=== PATIENT | female | born 1995 | race Caucasian/White ===

== ENCOUNTER 2019-01-01 18:01 | Emergency (ER) | payer SELFPAY ==
[~2019-01-01] VITALS: Ht 170.2 cm; Wt 132.0 kg
--- OUTSIDE RECORDS SUMMARY | 2019-01-01 18:05 | XMS REPORT ---
Author DESTINY Lara Organization eClinical[employer] Address Unknown Phone Unavailable Care Team Providers Care Kersey Department Supervisor Name Role Phone DESTINY MILLER CP Unavailable Allergies, Adverse Reactions, Alerts Substance Reaction Event Type N.K.D.A. Info Not Available Non Drug Allergy Problems Problem Type Condition Code Onset Dates Condition Status Assessment Acute non-recurrent maxillary sinusitis J01.00 Active Assessment Bronchitis J40 Active Problem DTAP TEST V06.1 Active Medications Medication Code System Code Instructions Start Date End Date Status Dosage PredniSONE [facility] [address]-74 20 mg Orally Once a day Jul 14, 2016 Jul 24, 2016 1 tablet tid x 3 bid x 3 and daily x 3 Albuterol Sulfate HFA [facility] [address]-42 108 (90 Base) MCG/ACT Inhalation every 4 hrs Jul 14, 2016 2 puffs as needed Azithromycin [facility] [address]-14 250 MG Orally Once a day Jul 14, 2016 Jul 19, 2016 2 tablets on the first day, then 1 tablet daily for 4 days Procedures Procedure Coding System Code Date Office Visit, Est Pt., Level 3 CPT-4 36496 Jul 14, 2016 Vital Signs Date/Time: Jul 14, 2016 Cardiac Monitoring Heart Rate 76 bpm Weight 268.6 lbs Height 66.5 in Ht Percentile 80.59 % BMI 42.70 Index Blood Pressure Diastolic 92 mmHg Blood Pressure Systolic 134 mmHg BMIPercentile 98.69 % Wt Percentile 99.61 % Results No Known Results Summary Purpose eClinicalWorks Submission
--- OUTSIDE RECORDS SUMMARY | 2019-01-01 18:05 | XMS REPORT ---
Author Author JACOBO ORTIZ [facility] Address [address] [place] [address] Care Team Providers Care Traditional Chinese Herbalist Name Role Phone JACOBO ORTIZ Unavailable PROBLEMS No Known Problems ALLERGIES No Known Allergies ENCOUNTERS Encounter Location Date Diagnosis [facility] [address] [address] Sep, [facility] [address] [place] [phone] Aug, BMI 40.0-44.9, adult Z68.41 and Bronchitis J[facility] [address] [place] [address] Jul, Bronchitis J40 and BMI 40.0-44.9, adult Z68.[address] [facility] [address] [place] [phone] Jun, Wheezing R06.2 and Acute bronchitis J20.9 [facility] [address] [place] [phone] Oct, Acute non-recurrent frontal sinusitis J01.[address] [facility] [address] [phone] Aug, Bronchitis J40 [facility] [address] [place] [phone] Jun, [facility] [address] [phone] Jun, Acute non-recurrent maxillary sinusitis J01.00 and Bronchitis J40 [facility] [address] [address] Aug, [facility] [address] [facility] [id number] [place] [address] Aug, IMMUNIZATIONS No Known Immunizations SOCIAL HISTORY Never Assessed REASON FOR VISIT cough/congestion, nausea and issues being able to hear out of right ear for about a week.--SHARRI Gaytan PLAN OF CARE Activity Details Follow Up as needed or reg fu with pcp Reason: VITAL SIGNS Height 66.5 in 2018-09-08 Weight 281.2 lbs 2018-09-08 Temperature 97.8 degrees Fahrenheit 2018-09-08 Heart Rate 84 bpm 2018-09-08 Respiratory Rate 20 2018-09-08 BMI 44.70 kg/m2 2018-09-08 Blood pressure systolic 124 mmHg 2018-09-08 Blood pressure diastolic 82 mmHg 2018-09-08 MEDICATIONS Medication Instructions Dosage Frequency Start Date End Date Duration Status PredniSONE 20 mg Orally Once a day 1 tablet 24h Aug, 5 days Active ProAir HFA 108 (90 Base) MCG/ACT Inhalation every 4 hrs 2 puffs as needed 4h Aug, 7 days Active Azithromycin 250 MG Orally Once a day 2 tablets on the first day, then 1 tablet daily for 4 days 24h Aug, 5 day(s) Active RESULTS No Results PROCEDURES No Known procedures INSTRUCTIONS MEDICATIONS ADMINISTERED No Known Medications MEDICAL (GENERAL) HISTORY Type Description Date Surgical History No know Surgical history
--- OUTSIDE RECORDS SUMMARY | 2019-01-01 18:05 | XMS REPORT ---
Author Author TAHIRA Kennedy [facility] Address [address] [place] [address] Care Team Providers Care Investment Executive Name Role Phone irinaGEORGETTETAHIRA BOWIE Unavailable PROBLEMS Type Condition ICD9-CM Code MAR64-CU Code Onset Dates Condition Status SNOMED Code Problem DTAP TEST V06.1 Active ALLERGIES No Known Allergies ENCOUNTERS Encounter Location Date Diagnosis [facility] [address] [phone] Jul, Bronchitis J40 and BMI 40.0-44.9, adult Z68.41 [facility] [address] [phone] Jun, Wheezing R06.2 and Acute bronchitis J20.9 [facility] [address] [address] Oct, Acute non-recurrent frontal sinusitis J01.10 [facility] [address] [place] [id number] [place] [phone] Aug, Bronchitis J40 [facility] [address] [address] Jun, [facility] [address] [phone] Jun, Acute non-recurrent maxillary sinusitis J01.00 and Bronchitis J40 [facility] [address] [address] Aug, [facility] [address] [address] Aug, IMMUNIZATIONS No Known Immunizations SOCIAL HISTORY Never Assessed REASON FOR VISIT Headache/cough JStrasserRN PLAN OF CARE Activity Details Follow Up prn Reason: VITAL SIGNS Height 66.5 in 2017-06-27 Weight 289.2 lbs 2017-06-27 Temperature 96.9 degrees Fahrenheit 2017-06-27 Heart Rate 80 bpm 2017-06-27 Respiratory Rate 20 2017-06-27 BMI 45.97 kg/m2 2017-06-27 Blood pressure systolic 110 mmHg 2017-06-27 Blood pressure diastolic 80 mmHg 2017-06-27 MEDICATIONS Medication Instructions Dosage Frequency Start Date End Date Duration Status ProAir HFA 108 (90 Base) MCG/ACT Inhalation every 4 hrs 2 puffs as needed 4h Jun, 30 days Active PredniSONE 20 MG Orally Once a day 2 tablet 24h Jun, Jun, 5 days Active RESULTS No Results PROCEDURES No Known procedures INSTRUCTIONS MEDICATIONS ADMINISTERED No Known Medications
--- OUTSIDE RECORDS SUMMARY | 2019-01-01 18:06 | XMS REPORT | Continuity of Care Document ---
Author Organization Unknown Address Unknown Allergies There is no data. Medications There is no data. Problems There is no data. Procedures There is no data. Results Test Result Range HCG, QUANTITATIVE - 12/06/18 13:47 HCG, TOTAL, QN 3683 mIU/mL NRG T4 FREE - 12/06/18 13:47 T4, FREE 0.9 ng/dL 0.8-1.8 TSH - 12/06/18 13:47 TSH 4.02 mIU/L NRG RUBELLA IMMUNE STATUS - 12/06/18 13:47 RUBELLA ANTIBODY (IGG) 1.58 index NRG A1C - 12/06/18 13:47 HEMOGLOBIN A1c 5.0 % of total Hgb <5.7 TEST AUTHORIZATION - 12/06/18 13:47 TEST NAME: THYROID PEROXIDASE T4, FREE NRG TEST CODE: [id number] 866SB NRG CLIENT CONTACT: KYLER JEFFRIES NRG REPORT ALWAYS MESSAGE SIGNATURE NRG COMMENT NRG CULTURE, URINE - 12/14/18 15:03 CULTURE, URINE, ROUTINE SEE NOTE NRG CULTURE, GENITAL - 12/14/18 15:03 CULTURE, GENITAL SEE NOTE NRG SUREPATH PAP RFX HPV mRNA E6/E7 - 12/14/18 15:03 CLINICAL INFORMATION: NRG LMP: NRG PREV. PAP: NONE NRG PREV. BX: NONE NRG SOURCE: Cervix NRG STATEMENT OF ADEQUACY: NRG INTERPRETATION/RESULT: NRG CASING BUILDER: NRG COMMENT NRG HCG, QUANTITATIVE - 12/16/18 14:30 [place] [address] mIU/mL NRG HCG, QUANTITATIVE - 12/21/18 15:19 [place] [address] mIU/mL NRG HCG, QUANTITATIVE - 12/28/18 15:12 [place], [place] [address] mIU/mL NRG Encounters ACCT No. Visit Date/Time Discharge Status Pt. Type Provider Facility Loc./Unit Complaint [id number] 12/28/2018 14:00:00 12/28/2018 23:59:59 CLS Outpatient [facility] [id number] 12/28/2018 14:00:00 Document Registration [id number] 12/21/2018 15:20:00 Document Registration [id number] 12/16/2018 14:00:00 Document Registration [id number] 12/14/2018 14:00:00 Document Registration [id number] 12/06/2018 11:40:00 Document Registration
--- OUTSIDE RECORDS SUMMARY | 2019-01-01 18:06 | XMS REPORT ---
Author Author TAHIRA BECKFORD Organization [facility] Address [address] [place] [address] Care Team Providers Care Pmp Certified Project Manager Name Role Phone HEIDI BECKFORDICE Unavailable PROBLEMS Type Condition ICD9-CM Code EFY19-CW Code Onset Dates Condition Status SNOMED Code Problem DTAP TEST V06.1 Active ALLERGIES No Known Allergies SOCIAL HISTORY Never Assessed PLAN OF CARE Activity Details Follow Up prn Reason: VITAL SIGNS Height 66.5 in 2016-11-17 Weight 287.0 lbs 2016-11-17 Temperature 97.0 degrees Fahrenheit 2016-11-17 Heart Rate 80 bpm 2016-11-17 Respiratory Rate 18 2016-11-17 BMI 45.62 kg/m2 2016-11-17 Blood pressure systolic 130 mmHg 2016-11-17 Blood pressure diastolic 98 mmHg 2016-11-17 MEDICATIONS No Known Medications RESULTS No Results PROCEDURES Procedure Date Ordered Result Body Site SOLUMEDROL (UP TO 125 MG) Nov 17, 2016 THER/PROPH/DIAG INJ, SC/IM Nov 17, 2016 IMMUNIZATIONS Vaccine Route Administration Date Status SOLUMEDROL (UP TO 125 MG) IM Intramuscular Nov 17, 2016 Administered
--- OUTSIDE RECORDS SUMMARY | 2019-01-01 18:06 | XMS REPORT ---
Author DESTINY Lara [facility] eClinicalWorks Address Unknown Phone Unavailable Care Team Providers Care Exhauster Engineer Name Role Phone DESTINY MILLER CP Unavailable Allergies No Known Allergies Problems Problem Type Condition Code Onset Dates Condition Status Problem DTAP TEST V06.1 Active Medications No Known Medications Results No Known Results Summary Purpose eClinicalWorks Submission
[2019-01-01 18:52] LABS: BASOPHILS % (AUTO) 0 % (0-10); EOSINOPHILS # (AUTO) 0.2 10^3/uL (0.0-0.3); EOSINOPHILS % (AUTO) 2 % (0-10); HEMATOCRIT 38 % (35-52); HEMOGLOBIN 12.5 G/DL (11.5-16.0); LYMPHOCYTES # (AUTO) 2.4 X 10^3 (1.0-4.0); LYMPHOCYTES % (AUTO) 18 % (12-44); MEAN CORPUSCULAR HEMOGLOBIN 29 PG (25-34); MEAN CORPUSCULAR HGB CONC 33 G/DL (32-36); MEAN CORPUSCULAR VOLUME 87 FL (80-99); MEAN PLATELET VOLUME 9.9 FL (7.4-10.4); MONOCYTES # (AUTO) 0.5 X 10^3 (0.0-1.0); MONOCYTES % (AUTO) 4 % (0-12); NEUTROPHILS # (AUTO) 10.6 X 10^3 (1.8-7.8); NEUTROPHILS % (AUTO) 77 % (42-75); PLATELET COUNT 327 10^3/uL (130-400); RED CELL DISTRIBUTION WIDTH 14.5 % (10.0-14.5); WHITE BLOOD COUNT 13.8 10^3/uL (4.3-11.0)
[2019-01-01 19:09] LABS: ALANINE AMINOTRANSFERASE 30 U/L (0-55); ALBUMIN 4.2 GM/DL (3.2-4.5); ALKALINE PHOSPHATASE 56 U/L (40-136); BILIRUBIN,TOTAL 0.5 MG/DL (0.1-1.0); BUN/CREATININE RATIO 13; CARBON DIOXIDE 22 MMOL/L (21-32); CHLORIDE 105 MMOL/L (98-107); CREATININE SERUM 0.78 MG/DL (0.60-1.30); GFR ESTIMATED > 60; GLUCOSE 125 MG/DL (70-105); POTASSIUM 3.7 MMOL/L (3.6-5.0); SODIUM 139 MMOL/L (135-145); TOTAL PROTEIN 7.7 GM/DL (6.4-8.2)
[2019-01-01] MEDS ORDERED: HYDROcodone/APAP 7.5 MG/325 MG (LORTAB, LORCET PLUS) TABLET PO ONE (20:00)
[2019-01-01 20:11] VITALS: BP 137/93
--- NOTE | 2019-01-01 20:15 | ED GU-Female ---
General Chief Complaint: Abdominal/GI Problems Stated Complaint: LOWER ABD PAIN Nursing Triage Note: PT CO OF ABD PAIN, PT STATES HAS BLIGHTED OVUM FOUND OUT APPROX 2 WEEKS AGO. Nursing Sepsis Screen: No Definite Risk Source: patient Exam Limitations: no limitations History of Present Illness Date Seen by Provider: Jan 01, 2019 Time Seen by Provider: 18:25 Initial Comments 23-year-old female who presents to the emergency room with complaints of suprapubic abdominal pain, increased spotting and history of blighted ovum for the past 2 weeks. She has had ultrasound to confirm this and has an appointment with Dr. Alvarenga next week but reports the pain has become worse today. She is not saturating through more than 1 pad per hour. Allergies and Home Medications Allergies Coded Allergies: shellfish derived (Verified Allergy, Unknown, 01/01/19) Home Medications Hydrocodone Bit/Acetaminophen 1 Tab Tab, 1-2 EACH PO Q6H PRN for PAIN-MODERATE Prescribed by: ALEJANDRO HICKMAN on 01/01/192037 Past Uaqqciz-Wilucq-Fkdocn Hx Patient Social History Alcohol Use: Denies Use Recreational Drug Use: No Smoking Status: Former Smoker Type Used: Cigarettes Recent Foreign Travel: No Contact w/Someone Who Travel: No Recent Infectious Disease Expo: No Recent Hopitalizations: No Past Medical History Surgeries: No Respiratory: No Cardiac: No Neurological: No : Yes (BLIGHTED OVUM) Genitourinary: No Gastrointestinal: No Musculoskeletal: No Endocrine: No HEENT: No Cancer: No Psychosocial: No Integumentary: No Blood Disorders: No Adverse Reaction/Blood Tranf: No Physical Exam Vital Signs Vital Signs - First Documented 01/01/19 01/01/19 18:21 20:11 Temp 97.1 Pulse 72 Resp 15 B/P (MAP) 142/80 (100) Pulse Ox 99 O2 Delivery Room Air Capillary Refill : Less Than 3 Seconds Height, Weight, BMI Height: 5'7.00" Weight: 291lbs. oz. 131.576612md; BMI Method:Stated Progress/Results/Core Measures Suspected Sepsis Recent Fever Within 48 Hours: No Infection Criteria Present: None New/Unexplained Altered Menta: No Sepsis Screen: No Definite Risk SIRS Temperature:97.1 Pulse: 82 Respiratory Rate: 18 Laboratory Tests 01/01/19 18:44: White Blood Count 13.8H Blood Pressure 137 /93 Mean: 108 Laboratory Tests 01/01/19 18:44: Creatinine 0.78, Platelet Count 327, Total Bilirubin 0.5 Results/Orders Lab Results Laboratory Tests Test 01/01/19 18:44 01/01/19 20:05 Range/Units White Blood Count 13.8 H 4.3-11.0 10^3/uL Red Blood Count 4.34 L 4.35-5.85 10^6/uL Hemoglobin 12.5 11.5-16.0 G/DL Hematocrit 38 35-52 % Mean Corpuscular Volume 87 80-99 FL Mean Corpuscular Hemoglobin 29 25-34 PG Mean Corpuscular Hemoglobin Concent 33 32-36 G/DL Red Cell Distribution Width 14.5 10.0-14.5 % Platelet Count 327 130-400 10^3/uL Mean Platelet Volume 9.9 7.4-10.4 FL Neutrophils (%) (Auto) 77 H 42-75 % Lymphocytes (%) (Auto) 18 12-44 % Monocytes (%) (Auto) 4 0-12 % Eosinophils (%) (Auto) 2 0-10 % Basophils (%) (Auto) 0 0-10 % Neutrophils # (Auto) 10.6 H 1.8-7.8 X 10^3 Lymphocytes # (Auto) 2.4 1.0-4.0 X 10^3 Monocytes # (Auto) 0.5 0.0-1.0 X 10^3 Eosinophils # (Auto) 0.2 0.0-0.3 10^3/uL Basophils # (Auto) 0.0 0.0-0.1 10^3/uL Sodium Level 139 135-145 MMOL/L Potassium Level 3.7 3.6-5.0 MMOL/L Chloride Level 105 98-107 MMOL/L Carbon Dioxide Level 22 21-32 MMOL/L Anion Gap 12 5-14 MMOL/L Blood Urea Nitrogen 10 7-18 MG/DL Creatinine 0.78 0.60-1.30 MG/DL Estimat Glomerular Filtration Rate > 60 BUN/Creatinine Ratio 13 Glucose Level 125 H 70-105 MG/DL Calcium Level 10.0 8.5-10.1 MG/DL Corrected Calcium 9.8 8.5-10.1 MG/DL Total Bilirubin 0.5 0.1-1.0 MG/DL Aspartate Amino Transf (AST/SGOT) 19 5-34 U/L Alanine Aminotransferase (ALT/SGPT) 30 0-55 U/L Alkaline Phosphatase 56 40-136 U/L Total Protein 7.7 6.4-8.2 GM/DL Albumin 4.2 3.2-4.5 GM/DL Human Chorionic Gonadotropin, Quant 12093 H <5 MIU/ML Urine Color RED H Urine Clarity BLOODY H Urine pH 8 5-9 Urine Specific [place] 1.015 L 1.016-1.022 Urine Protein 4+ NEGATIVE Urine Glucose (UA) NEGATIVE NEGATIVE Urine Ketones 1+ H NEGATIVE Urine Nitrite NEGATIVE NEGATIVE Urine Bilirubin NEGATIVE NEGATIVE Urine Urobilinogen 1 NORMAL MG/DL Urine Leukocyte Esterase 1+ H NEGATIVE Urine RBC (Auto) 5+ H NEGATIVE Urine RBC TNTC H /HPF Urine WBC NONE /HPF Urine Crystals NONE /LPF Urine Bacteria NEGATIVE /HPF Urine Casts NONE /LPF Urine Mucus NEGATIVE /LPF Urine Culture Indicated NO My Orders Orders - ALEJANDRO HICKMAN Ua Culture If Indicated (01/01/19 18:03) Urine Bedside (01/01/19 18:03) Cbc With Automated Diff (01/01/19 18:27) Hcg,Quantitative (01/01/19 18:27) Comprehensive Metabolic Panel (01/01/19 18:27) Us Ob Transvaginal [id number] (01/01/19 18:27) Hydrocodone/Apap 7.5/325 Tab (Lortab 7. (01/01/19 20:00) Rx-Hydrocodone/Apap 5-325 Mg (Rx-Vicodin (01/01/19 20:45) Medications Given in ED Vital Signs/I&O Capillary Refill : Less Than 3 Seconds Blood Pressure Mean: 108 Departure Impression Primary Impression: Blighted ovum Disposition: HOME, SELF-CARE Condition: Stable/Unchanged Departure-Patient Inst. Decision time for Depature: 20:37 Referrals: ANÍBAL ALVARENGA MD (PCP/Family) Primary Care Physician Patient Instructions: Miscarriage Add. Discharge Instructions: Take medications as directed. Follow-up with your primary care provider by calling first thing Thursday morning for an appointment time for recheck. Return back to the emergency room for worsening pain, increasing vaginal bleeding, or any other concerns as needed. All discharge instructions reviewed with patient and/or family. Voiced understanding. Scripts Hydrocodone Bit/Acetaminophen (Hydrocodone/Acetaminophen 5/325mg Tablet) 1 Tab Tab 1-2 EACH PO Q6H PRN for PAIN-MODERATE MDD 10, #20 TAB Prov: ALEJANDRO HICKMAN 01/01/19 ALEJANDRO HICKMAN Jan 01, 2019 20:15
[2019-01-01 20:16] LABS: BILIRUBIN,URINE NEGATIVE (NEGATIVE); CLARITY,URINE BLOODY; COLOR,URINE RED; GLUCOSE, URINE (UA) NEGATIVE (NEGATIVE); KETONES,URINE 1+ (NEGATIVE); LEUKOCYTE ESTERASE ,URINE 1+ (NEGATIVE); NITRITE,URINE NEGATIVE (NEGATIVE); PH,URINE 8 (5-9); PROTEIN,URINE 4+ (NEGATIVE); UROBILINOGEN,URINE 1 MG/DL (NORMAL)
[2019-01-01 20:30] LABS: BACTERIA,URINE NEGATIVE /HPF; RBC,URINE TNTC /HPF
[2019-01-01] MEDS ORDERED: ACHD5005 PO (20:38)
[2019-01-01] MEDS ORDERED: RX-HYDROCODONE/APAP 5/325 MG #4 TAB PK PO PRN (20:45)
[2019-01-01 20:50] VITALS: BP 136/91
--- NOTE | 2019-01-01 20:51 | Diagnostic Imaging Report ---
PROCEDURE: US Follow Up TECHNIQUE: Multiple real-time grayscale images were obtained transvaginally. INDICATION: History of blighted ovum. Vaginal bleeding and cramping. Patient's menstrual history is unknown. Patient is reportedly 6 weeks 1 day gestational age. COMPARISON: None available. FINDINGS: Ultrasound reveals an irregular somewhat crenulated appearing gestational sac in the endometrial canal. The gestational sac measures 1.1 x 0.8 x 2.1 cm. There is suggestion of a small yolk sac but no definite evidence of pole. There is no evidence of subchorionic hemorrhage. The ovaries are not visualized. IMPRESSION: Gestational sac and pole are demonstrated. The gestational sac is irregular and demonstrates a somewhat crenulated appearance. Findings reflect early intrauterine gestation and are compatible with given history of blighted ovum. Recommend continued clinical surveillance and repeat pelvic ultrasound as indicated. Dictated by: Dictated on workstation # [id number]
== END 2019-01-01 20:50 | disposition home or self-care (01) ==
LOC: ER 18:02
DX: O02.0 Blighted ovum and nonhydatidiform mole (principal); Z87.891 Personal history of nicotine dependence; Z3A.00 Weeks of gestation of pregnancy not specified
CPT/HCPCS: 36415; 76817; 80053; 81000; 84702; 85025

== ENCOUNTER → 2022-08-13 | Outpatient (CLI) | payer BC ==
[~2022-08-13] MED LIST: ACHD5005 PO
--- NOTE | 2022-08-13 17:40 | Diagnostic Imaging Report ---
INDICATION: patient, survey. TECHNIQUE: Multiple real-time grayscale images were obtained over the gravid uterus. COMPARISON: None during this . FINDINGS: A single live intrauterine fetus is seen measuring 20 weeks 5 days by composite measurements. Fetus is in cephalic presentation. Amniotic fluid index is 15.2 cm. Placenta is posterior and without evidence of previa. heart rate is 153 BPM. Cervical length is 4.2 cm. The distance from the internal os to the tip of the placenta was 4.8 cm. There is no subchorionic bleed. There is no free fluid. survey demonstrates normal-appearing bladder and stomach. Normal-appearing intracranial ventricles are noted. Four-chamber heart view appeared normal. Three-vessel cord appeared normal. There are suboptimal images of the kidneys and spine and cord insertion due to positioning. Biometrical measurements are as follows: Biparietal 4.70 cm, age 20 weeks 2 days. Head circumference 17.95 cm, age 20 weeks 3 days. Abdominal circumference 14.50 cm, age 19 weeks 6 days. Femur length 3.75 cm, age 22 weeks 0 days. Sonographic estimate age: 20 weeks 5 days. Sonographic estimated date of delivery: 12/26/2022. Estimated Weight: 375 gm (+/- 55 gm). LMP percentile: 47%. heart rate: 153 beats per minute. number: 1 of 1. IMPRESSION: Single live intrauterine fetus measuring at 20 weeks 5 days in size. There was no detectable abnormality although survey was limited, the above-mentioned structures were not well visualized. Consider limited follow-up, as clinically warranted. Dictated by: Dictated on workstation # [id number]
== END ==
LOC: RAD 14:55
PROVIDERS: ATTEND Nurse Practitioner Women's Health
DX: Z34.02 Encounter for supervision of normal first pregnancy, second trimester (principal); Z3A.20 20 weeks gestation of pregnancy
CPT/HCPCS: 76805

== ENCOUNTER 2022-12-05 20:55 | Outpatient (CLI) | payer BC ==
[~2022-12-05] VITALS: Ht 170.2 cm; Wt 135.0 kg
[2022-12-05 21:15] VITALS: BP 127/59
[2022-12-05 21:57] LABS: BILIRUBIN,URINE NEGATIVE (NEGATIVE); CLARITY,URINE CLEAR; COLOR,URINE YELLOW; GLUCOSE, URINE (UA) NEGATIVE (NEGATIVE); KETONES,URINE NEGATIVE (NEGATIVE); LEUKOCYTE ESTERASE ,URINE NEGATIVE (NEGATIVE); NITRITE,URINE NEGATIVE (NEGATIVE); PH,URINE 6.5 (5-9); PROTEIN,URINE NEGATIVE (NEGATIVE)
[2022-12-05 22:10] LABS: AMORPHOUS SEDIMENT,UR MOD AMOR URATES /LPF; BACTERIA,URINE MODERATE /HPF; WBC,URINE RARE /HPF
[2022-12-05 22:11] LABS: HYALINE CASTS, URINE RARE /LPF
[2022-12-05] MEDS ORDERED: PREN-48 PO (22:33)
--- NOTE | 2022-12-05 22:33 | OB Triage Report ---
Standard Progress Note Progress Notes/Assess & Plan Date Seen by a Provider: Dec 05, 2022 Time Seen by a Provider: 22:30 Expected Date of Delivery: Dec 26, 2022 Gestational Age in Weeks: 37 Gestational Age in Days: 0 LMP/BRETT Comment: As above. Progress/Assessment & Plan Patient @ 37 weeks with decreased movement today. NST reactive with 3 good accelerations meeting criteria for RNST, no contractions, no decels, and patient has felt baby move 10 times while here. VSS. Home with labor and kick count precautions. Follow up routine OB, sooner prn. Final Diagnosis 37 weeks Decreased Movement FLORY BENTON DO Dec 05, 2022 22:33
== END 2022-12-05 22:40 | disposition home or self-care (01) ==
LOC: LDRP 20:55 → WSo 20:55
PROVIDERS: ATTEND Obstetrics & Gynecology
DX: O36.8130 Decreased fetal movements, third trimester, not applicable or unspecified (principal); Z3A.37 37 weeks gestation of pregnancy
CPT/HCPCS: 81000; 87088

== ENCOUNTER → 2022-12-29 | Outpatient (CLI) | payer BC ==
[~2022-12-29] MED LIST changes: +PREN-48 PO
== END ==
LOC: LABNPT 11:17
PROVIDERS: ATTEND Obstetrics & Gynecology
DX: O13.9 Gestational [pregnancy-induced] hypertension without significant proteinuria, unspecified trimester (principal); Z3A.00 Weeks of gestation of pregnancy not specified
CPT/HCPCS: 82570; 84156

== ENCOUNTER 2022-12-30 21:46 | Inpatient (IN) | payer BC ==
[~2022-12-30] VITALS: Ht 172.7 cm; Wt 134.8 kg
[2022-12-30 22:11] VITALS: BP 140/84
[2022-12-30] MEDS ORDERED: LIDOCAINE 1% INJ 10 ML VIAL INJ PRN (22:30)
[2022-12-30] MEDS ORDERED: LACTATED RINGERS 1,000 ML IV SCH (22:45)
[2022-12-30 22:56] LABS: BASOPHILS % (AUTO) 0 % (0-10); EOSINOPHILS # (AUTO) 0.2 10^3/uL (0.0-0.3); EOSINOPHILS % (AUTO) 1 % (0-10); HEMATOCRIT 36 % (35-52); HEMOGLOBIN 11.9 g/dL (11.5-16.0); LYMPHOCYTES # (AUTO) 1.8 X 10^3 (1.0-4.0); LYMPHOCYTES % (AUTO) 12 % (12-44); MEAN CORPUSCULAR HEMOGLOBIN 29 pg (25-34); MEAN CORPUSCULAR HGB CONC 33 g/dL (32-36); MEAN CORPUSCULAR VOLUME 88 fL (80-99); MEAN PLATELET VOLUME 10.8 fL (9.0-12.2); MONOCYTES # (AUTO) 0.8 X 10^3 (0.0-1.0); MONOCYTES % (AUTO) 5 % (0-12); NEUTROPHILS # (AUTO) 12.1 X 10^3 (1.8-7.8); NEUTROPHILS % (AUTO) 81 % (42-75); PLATELET COUNT 223 10^3/uL (130-400)
[2022-12-30] MEDS ORDERED: HYDROmorphone 2 MG/ML VIAL (DILAUDID) IV PRN (23:00)
[2022-12-30 23:32] LABS: BAND NEUTROPHILS 3 %; EOSINOPHILS % (MANUAL) 3 %; LYMPHOCYTES % (MANUAL) 15 %; MONOCYTES % (MANUAL) 4 %; NEUTROPHILS % (MANUAL) 75 %; PLATELET ESTIMATE NORMAL; RBC MORPH NORMAL
[2022-12-30] MEDS: D5 LR IV SOLUTION 1,000 ML IV SCH (23:34)
[2022-12-31] VITALS (17 sets, daily range): BP systolic 68–141; BP diastolic 61–92
[2022-12-31 00:20] LABS: BILIRUBIN,URINE NEGATIVE (NEGATIVE); CLARITY,URINE CLEAR; COLOR,URINE YELLOW; GLUCOSE, URINE (UA) NEGATIVE (NEGATIVE); KETONES,URINE NEGATIVE (NEGATIVE); LEUKOCYTE ESTERASE ,URINE 1+ (NEGATIVE); NITRITE,URINE NEGATIVE (NEGATIVE); PROTEIN,URINE NEGATIVE (NEGATIVE)
[2022-12-31 00:39] LABS: BACTERIA,URINE MODERATE /HPF; WBC,URINE 25-50 /HPF
[2022-12-31] MEDS ORDERED: CATHETER FLUSH 10 ML SYR IV PRN (04:45)
[2022-12-31] MEDS ORDERED: OXYTOCIN PRE-MIX DRIP 500 ML IV SCH (05:00)
[2022-12-31] MEDS ORDERED: CATHETER FLUSH 10 ML SYR IV SCH ×2 (06:00→14:00)
[2022-12-31] MEDS: D5 LR IV SOLUTION 1,000 ML IV SCH (06:13)
--- NOTE | 2022-12-31 06:42 | History & Physical-OB ---
KAYLI KNIGHT 12/31/22 0642: OB - Chief Complaint & HPI Date/Time Date of Admission: Date of Admission: Dec 30, 2022 at 22:20 Date seen by a Provider: Dec 31, 2022 Time Seen by a Provider: 06:37 Chief Complaint/History OB-Reason for Admission/Chief: Rupture of Membranes Hx : 2 Hx Para: 0 Expected Date of Delivery: Dec 26, 2022 Gestational Age in Weeks: 40 Gestational Age in Days: 4 History of Labs Blood type A- Rubella immune GBS neg HIV NR RPR NR HepB NR Allergies and Home Medications Allergies Coded Allergies: shellfish derived (Verified Allergy, Unknown, 01/01/19) Patient Home Medication List Home Medication List Reviewed: Yes Vit No.78/Iron/FA (Prenatabs FA Tablet) 29 Mg Iron-1 Mg Tablet, 1 EACH PO, (Reported) Entered as Reported by: VEE VAIL on 12/05/222232 Last Action: Reviewed OB - History Hx of Present Care: Yes Ultrasounds: Normal mid trimester US Obstetrical Complications: None Medical Complications: None Information Induced Hypertension: No Maternal Gestational Diabetes: No Hemorrhage: No Obstetrical History Hx : 2 Hx Para: 0 Hx Total # of Abortions (Spona: 1 Delivery History Adverse Rxn to Tranfusion: No Patient Past Medical History PCOS Tinnitus Social History/Family History Alcohol Use: Denies Use Recreational Drug Use: No Smoking Cessation: Never smoker 2nd Hand Smoke Exposure: No OB - Admission Exam Physical Exam Vitals: Vital Signs 12/31/22 12/31/22 05:15 05:30 Temp 36.7 Pulse 69 Resp 18 B/P (MAP) 131/88 (102) Pulse Ox 98 O2 Delivery Room Air HEENT: NCAT Heart: Rhythm Normal Lungs: Clear Abdomen: Non tender Extremities: Normal Cervical Dilatation: 3cm Effacement: Other (80) Membranes: Ruptured Amniotic Fluid: Clear Heart Rate: 140's Decelerations: Prolonged Decelerations Labs Laboratory Tests Test 12/30/22 21:55 12/30/22 22:35 Range/Units Urine Color YELLOW Urine Clarity CLEAR Urine pH 6.0 5-9 Urine Specific [place] >=1.030 1.016-1.022 Urine Protein NEGATIVE NEGATIVE Urine Glucose (UA) NEGATIVE NEGATIVE Urine Ketones NEGATIVE NEGATIVE Urine Nitrite NEGATIVE NEGATIVE Urine Bilirubin NEGATIVE NEGATIVE Urine Urobilinogen 1.0 < = 1.0 MG/DL Urine Leukocyte Esterase 1+ H NEGATIVE Urine RBC (Auto) 1+ H NEGATIVE Urine RBC 5-10 H /HPF Urine WBC 25-50 H /HPF Urine Squamous Epithelial Cells 2-5 /HPF Urine Crystals NONE /LPF Urine Bacteria MODERATE H /HPF Urine Casts NONE /LPF Urine Mucus SMALL H /LPF Urine Culture Indicated YES White Blood Count 15.0 H 4.3-11.0 10^3/uL Red Blood Count 4.07 3.80-5.11 10^6/uL Hemoglobin 11.9 11.5-16.0 g/dL Hematocrit 36 35-52 % Mean Corpuscular Volume 88 80-99 fL Mean Corpuscular Hemoglobin 29 25-34 pg Mean Corpuscular Hemoglobin Concent 33 32-36 g/dL Red Cell Distribution Width 14.9 H 10.0-14.5 % Platelet Count 223 130-400 10^3/uL Mean Platelet Volume 10.8 9.0-12.2 fL Immature Granulocyte % (Auto) 0 % Neutrophils (%) (Auto) 81 H 42-75 % Lymphocytes (%) (Auto) 12 12-44 % Monocytes (%) (Auto) 5 0-12 % Eosinophils (%) (Auto) 1 0-10 % Basophils (%) (Auto) 0 0-10 % Neutrophils # (Auto) 12.1 H 1.8-7.8 X 10^3 Lymphocytes # (Auto) 1.8 1.0-4.0 X 10^3 Monocytes # (Auto) 0.8 0.0-1.0 X 10^3 Eosinophils # (Auto) 0.2 0.0-0.3 10^3/uL Basophils # (Auto) 0.0 0.0-0.1 10^3/uL Immature Granulocyte # (Auto) 0.1 0.0-0.1 10^3/uL Neutrophils % (Manual) 75 % Lymphocytes % (Manual) 15 % Monocytes % (Manual) 4 % Eosinophils % (Manual) 3 % Band Neutrophils 3 % Platelet Estimate NORMAL Blood Morphology Comment NORMAL OB - Assessment/Plan/Diagnosis Assessment Assessment: active labor Admission Dx 27 y/o at 40 weeks SROM Admission Status: Inpatient Order (span 2 midnights) Reason for Inpatient Admission: SROM at 40 weeks GBS neg Plan Induction Method: per Pitocin Protocol MAXIME MARTINEZ DO 12/31/22 0703: Allergies and Home Medications Allergies Coded Allergies: shellfish derived (Verified Allergy, Unknown, 01/01/19) Patient Home Medication List Vit No.78/Iron/FA (Prenatabs FA Tablet) 29 Mg Iron-1 Mg Tablet, 1 EACH PO, (Reported) Entered as Reported by: VEE VAIL on 12/05/22 3453 Last Action: Reviewed OB - Assessment/Plan/Diagnosis Plan Other Plan Verification and Attestation of Medical Student E/M Service A medical student performed and documented this service in my presence. I reviewed and verified all information documented by the medical student and made modifications to such information, when appropriate. I personally performed the physical exam and medical decision making. Maxime Martinez, Dec 31, 2022,07:03 KAYLI KNIGHT Dec 31, 2022 06:42 MAXIME MARTINEZ DO Dec 31, 2022 07:03
[2022-12-31] MEDS ORDERED: fentaNYL INJ 100 MCG/2 ML AMP ONE (06:59)
[2022-12-31] MEDS ORDERED: FAMOTIDINE 20MG/2ML IV (PEPCID) ONE (06:59)
[2022-12-31] MEDS ORDERED: METOCLOPRAMIDE INJ 10 MG/2 ML (REGLAN) ONE (06:59)
[2022-12-31] MEDS ORDERED: CITRIC ACID/SOB CIT (BICITRA) 30 ML UDC ONE (06:59)
[2022-12-31] MEDS ORDERED: ceFAZolin INJECTION 2,000 MG ONE (07:00)
[2022-12-31] MEDS ORDERED: NS (IVPB) 50 ML ONE (07:00)
--- NOTE | 2022-12-31 07:08 | Progress Note ---
Standard Progress Note Progress Notes/Assess & Plan Date Seen by a Provider: Dec 31, 2022 Time Seen by a Provider: 06:55 Progress/Assessment & Plan After patient arrival last night SROM had occurred. She was observed overnight with a few variable decels noted overnight. She was augmented with low dose 2 mu pitocin approx 5 am due to dysfunctional labor pattern and recurrent deep heart rate decelerations occurred recurrently. Pitocin stopped and heart rate still had a prolonged deceleration. Due to intolerance of labor I discussed with patient urgently moving to delivery. Risk reviewed all questions answered. MAXIME MARTINEZ DO Dec 31, 2022 07:08
[2022-12-31] MEDS ORDERED: FAMOTIDINE 20MG/2ML IV (PEPCID) IV ONE (07:15)
[2022-12-31] MEDS ORDERED: ONDANSETRON 4 MG/2 ML (SDV) Z0FRAN IVP PRN (07:15)
[2022-12-31] MEDS ORDERED: METOCLOPRAMIDE INJ 10 MG/2 ML (REGLAN) IV ONE (07:15)
[2022-12-31] MEDS ORDERED: MEASLES,MUMPS,RUBELLA 1 EA INJ SC SCH (07:15)
[2022-12-31] MEDS ORDERED: TETANUS,DIPTH,PERTUSS P/F (BOOSTRIX) 0.5 ML VIAL IM SCH (07:15)
[2022-12-31] MEDS ORDERED: CITRIC ACID/SOB CIT (BICITRA) 30 ML UDC PO ONE (07:15)
[2022-12-31] MEDS ORDERED: LACTATED RINGERS 1,000 ML IV PRN ×2 (07:15)
[2022-12-31] MEDS ORDERED: NALOXONE 0.4 MG/ML 1 ML (NARCAN) VIAL IV PRN (07:15)
[2022-12-31] MEDS ORDERED: ceFAZolin INJECTION 2,000 MG in NS (IVPB) 50 ML IV ONE (07:30)
[2022-12-31] MEDS ORDERED: ONDANSETRON 4 MG/2 ML (SDV) Z0FRAN ONE (07:31)
[2022-12-31] MEDS ORDERED: OXYTOCIN PRE-MIX DRIP 500 ML IV ONE (07:31)
[2022-12-31] MEDS ORDERED: KETOROLAC 30 MG/ML VIAL ONE (07:31)
[2022-12-31] MEDS ORDERED: proPOfol 200 MG/20 ML (DIPRIVAN) VIAL IV ONE (07:42)
[2022-12-31] MEDS ORDERED: SUCCINYLCHOLINE INJ 20 MG/1 ML 10 ML VIAL ONE (07:42)
[2022-12-31] MEDS: KETOROLAC 30 MG/ML VIAL IV SCH ×3 (07:46→19:51)
[2022-12-31] MEDS: OXYTOCIN PRE-MIX DRIP 500 ML IV SCH ×2 (07:56→11:40)
[2022-12-31] MEDS ORDERED: BUPIVACAINE 0.5% 30 ML (SENSORCAINE) VIAL ONE (08:11)
[2022-12-31] MEDS: METOCLOPRAMIDE 10 MG (REGLAN) TAB PO SCH ×2 (11:38→18:34)
[2022-12-31] MEDS: DOCUSATE SODIUM 100 MG (COLACE) CAP PO SCH ×2 (11:38→19:52)
[2022-12-31] MEDS: HYDROcodone/APAP 5 MG/325 MG (LORTAB) TAB PO PRN ×2 (11:38→18:35)
--- NOTE | 2022-12-31 13:39 | OPERATIVE REPORT ---
PREOPERATIVE DIAGNOSES: 1. A 27-year-old at 40 weeks and 5 days gestation. 2. intolerance of labor. POSTOPERATIVE DIAGNOSES: 1. A 27-year-old at 40 weeks and 5 days' gestation. 2. intolerance of labor. PROCEDURE: Emergency primary low transverse section. SURGEON: Leroy Martinez DO ANESTHESIA: Spinal. ESTIMATED BLOOD LOSS: 200 mL. URINE OUTPUT: 200 mL, clear at the end of the procedure. FLUIDS: 1000 mL lactated Ringer's solution. FINDINGS: A live female , weight pending, Apgars of 1 and 8. Grossly normal appearing uterus, bilateral fallopian tubes and ovaries and nuchal cord that were reduced x2. SPECIMEN SENT: Placenta. INDICATIONS FOR PROCEDURE: This 27-year-old female patient who had presented to the hospital in active labor with spontaneous rupture of membranes. She was monitored throughout the evening, was having variable heart rate decelerations intermittently, but nothing regular. Pitocin augmentation was started due to dysfunctional uterine contraction pattern and once adequate contraction pattern was met, heart rate decelerations became recurrent with a prolonged deceleration to the 60s lasting approximately 3 minutes. This was discontinued and the Pitocin was then restarted approximately one hour later with recurrent variable decelerations. Due to intolerance to labor, I discussed with the patient proceeding urgently with . Risks of procedure were discussed with the patient in detail. After all of her questions were answered, consent was obtained, the patient was taken to the operating room. OPERATIVE REPORT IN DETAIL: Once in the operating room, spinal analgesia was administered and found to be adequate, was placed in supine position with a leftward tilt, prepped and draped in a sterile fashion. A timeout was performed. Anesthesia was tested. I then made a Pfannenstiel skin incision through the skin and taken down to the underlying fascia using Bovie cautery. The fascial incision extended laterally using Bovie cautery. The superior aspect of fascial incision was then grasped with Jun clamps, tented up and dissected off the underlying rectus muscles. The inferior aspect of fascial incision was then grasped with Jun clamps, tented up and dissected off the underlying rectus muscles. The rectus muscles were dissected bluntly down the midline, which exposed the peritoneum, which I entered bluntly, extended using blunt traction. Bong ring retractor was placed in the peritoneal incision, which offers excellent lateral sidewall retraction. I identified the lower uterine segment and was found to be thinned out. I made a low transverse incision to the vesicouterine peritoneum and bluntly dissected off the lower uterine segment, creating a bladder flap. I then proceeded my myotomy until membranes were visualized, at which point I extended the uterine incision laterally and superiorly using blunt traction. The infant was found in vertex presentation. With gentle fundal pressure, the infant's head was elevated up to the incision where it was delivered through the incision. The nares and oropharynx were bulb suctioned and nuchal cord was reduced x2. Anterior and posterior shoulders were delivered and the was then brought to the operative field where the cord was doubly clamped and cut, and the was handed off to waiting nurses in attendance. Cord blood was collected. Three-vessel cord with intact placenta was delivered spontaneously thereafter. IV Pitocin was initiated to facilitate uterine contraction. Uterine fundus confirmed with bimanual massage. The uterus was then exteriorized and cleared of all endometrial clots and debris. I then proceeded with closing the uterine incision using 0 Vicryl suture in a running locked fashion. A second layer of imbricating 0 Monocryl was placed. Excellent hemostasis was noted after doing this. I then placed the uterus back in the pelvis. Copiously irrigated the pelvis using normal saline. Once again, there was no active bleeding noted from any of my dissection planes. I placed Interceed antiadhesive over my low transverse incision. I removed the Bong retractor and then proceeded with closing the peritoneum using 3-0 Vicryl suture in a running fashion. The rectus muscles were reapproximated using 3-0 Vicryl suture in an interrupted fashion. The fascia was reapproximated using 0 Vicryl suture in a running fashion. Subcutaneous tissue was reapproximated using 3-0 plain interrupted subcutaneous stitch and skin reapproximated with 4-0 Monocryl running subcuticular. Dermabond was applied to incision and sterile dressing was adhesed with white tape. The patient tolerated the procedure well and was taken to recovery area in stable condition. Lap and sponge counts were correct at the end of the procedure. Instrument counts correct as well. Two grams of Ancef were given preoperatively for infection prophylaxis. Job ID: [id number] DocumentID: [id number] Dictated Date: 12/31/2022 08:28:36 Contract Designer Date: 12/31/2022 13:37:00 Dictated By: LEROY MARTINEZ DO
[2023-01-01] MEDS: METOCLOPRAMIDE 10 MG (REGLAN) TAB PO SCH ×4 (00:02→20:10)
[2023-01-01] MEDS: HYDROcodone/APAP 5 MG/325 MG (LORTAB) TAB PO PRN ×4 (00:02→20:10)
[2023-01-01 00:03] VITALS: BP 126/65
[2023-01-01] MEDS: KETOROLAC 30 MG/ML VIAL IV SCH (01:56)
[2023-01-01 04:08] VITALS: BP 116/69
[2023-01-01 06:09] LABS: BASOPHILS % (AUTO) 0 % (0-10); EOSINOPHILS # (AUTO) 0.2 10^3/uL (0.0-0.3); EOSINOPHILS % (AUTO) 1 % (0-10); HEMATOCRIT 31 % (35-52); HEMOGLOBIN 10.1 g/dL (11.5-16.0); LYMPHOCYTES # (AUTO) 1.6 10^3/uL (1.0-4.0); LYMPHOCYTES % (AUTO) 10 % (12-44); MEAN CORPUSCULAR HEMOGLOBIN 29 pg (25-34); MEAN CORPUSCULAR HGB CONC 32 g/dL (32-36); MEAN CORPUSCULAR VOLUME 90 fL (80-99); MEAN PLATELET VOLUME 11.1 fL (9.0-12.2); MONOCYTES # (AUTO) 0.7 10^3/uL (0.0-1.0); MONOCYTES % (AUTO) 4 % (0-12); NEUTROPHILS # (AUTO) 13.4 10^3/uL (1.8-7.8); NEUTROPHILS % (AUTO) 84 % (42-75); PLATELET COUNT 171 10^3/uL (130-400); WHITE BLOOD COUNT 16.1 10^3/uL (4.3-11.0)
--- NOTE | 2023-01-01 06:59 | Postpartum Progress Note ---
KAYLI KNIGHT 01/01/23 0659: Note Note Day # 1 Subjective: Patient is without complaints. Ambulating, voiding. Tolerating a regular diet without nausea or vomiting. Normal lochia. Pain is well controlled with oral pain medications. Objective: Physical Exam: General - Alert and oriented, no apparent distress Abdomen - Soft, appropriately tender to palpation, non-distended, fundus firm at umbilicus Extremities - no edema, negative Manjit's bilaterally Assessment: PPD 1, status post section. Incision is C/D/I Recovering well, hemodynamically stable Plan: Routine care. Encourage breast feeding. Encourage ambulation. Ferrous sulfate supplementation. Plan for discharge tomorrow. Vitals - Labs Vital Signs - I&O Vital Signs Date Time Temp Pulse Resp B/P (MAP) Pulse Ox O2 Delivery O2 Flow Rate FiO2 01/01/23 04:08 36.5 81 18 116/69 (85) 98 Room Air 01/01/23 00:03 36.6 81 18 126/65 (85) 98 Room Air 12/31/22 19:52 36.5 82 18 123/65 (84) 96 Room Air 12/31/22 15:48 36.3 67 18 134/67 (89) 98 Room Air 12/31/22 11:33 36.9 70 18 125/68 (87) 97 Room Air 12/31/22 08:39 35.6 16 102/62 (75) 98 Room Air 12/31/22 08:39 Room Air 12/31/22 08:26 36.1 16 106/62 (77) 98 Room Air 12/31/22 08:26 Room Air 12/31/22 08:10 Room Air 12/31/22 08:10 36.4 97 19 110/61 (77) 97 Room Air 12/31/22 08:10 36.4 16 110/61 (77) 97 Room Air 12/31/22 07:56 36.3 16 108/66 (80) 98 Room Air 12/31/22 07:56 Room Air 12/31/22 07:00 36.6 73 18 128/86 (100) Room Air 12/31/22 06:45 36.6 73 18 128/86 (100) Room Air I & O 01/01/23 07:00 Intake Total 2850 ml Output Total 500 ml Balance 2350 ml Labs Laboratory Tests 4/13/23 05:17: White Blood Count 16.1H, Red Blood Count 3.45L, Hemoglobin 10.1L, Hematocrit 31L , Mean Corpuscular Volume 90, Mean Corpuscular Hemoglobin 29, Mean Corpuscular Hemoglobin Concent 32, Red Cell Distribution Width 15.3H, Platelet Count 171, Mean Platelet Volume 11.1, Immature Granulocyte % (Auto) 1, Neutrophils (%) (Au to) 84H, Lymphocytes (%) (Auto) 10L, Monocytes (%) (Auto) 4, Eosinophils (%) (Auto) 1, Basophils (%) (Auto) 0, Neutrophils # (Auto) 13.4H, Lymphocytes # (Auto) 1.6, Monocytes # (Auto) 0.7, Eosinophils # (Auto) 0.2, Basophils # (Auto) 0.0, Immature Granulocyte # (Auto) 0.1 MAXIME MARTINEZ DO 01/01/23 0717: Note Note Diagnosis: Acute blood loss anemia Verification and Attestation of Medical Student E/M Service A medical student performed and documented this service in my presence. I revie wed and verified all information documented by the medical student and made modifications to such information, when appropriate. I personally performed the physical exam and medical decision making. Maxime Martinez, Jan 01, 2023,07:17 KAYLI KNIGHT Jan 01, 2023 06:59 MAXIME MARTINEZ DO Jan 01, 2023 07:17
[2023-01-01] MEDS ORDERED: RHO(D) IMMUNE GLOBULIN 300 MCG/2 ML SYRINGE IM/IV ONE (09:00)
[2023-01-01] MEDS: DOCUSATE SODIUM 100 MG (COLACE) CAP PO SCH ×2 (09:41→22:17)
[2023-01-01] MEDS: IBUPROFEN 600 MG (MOTRIN) TAB PO SCH ×3 (09:41→22:18)
[2023-01-01 09:44] VITALS: BP 119/74
--- NOTE | 2023-01-01 10:19 | Anesthesia-Regional Post-Op ---
Regional Patient Condition Mental Status: Alert, Oriented x3 Circulation: Same as Pre-Op Headache: Absent Sensation: Full Recovery Motor Block: Absent Post Op Complications Complications None Follow Up Care/Instructions Patient Instructions None needed. Anesthesia/Patient Condition Patient is doing well, no complaints, stable vital signs, no apparent adverse anesthesia problems. No complications reported per nursing. MADHURI FRIAS CRNA Jan 01, 2023 10:19
[2023-01-01 16:08] VITALS: BP 128/64
[2023-01-01 22:18] VITALS: BP 114/69
[2023-01-02] MEDS: METOCLOPRAMIDE 10 MG (REGLAN) TAB PO SCH ×2 (02:00→09:52)
[2023-01-02] MEDS: HYDROcodone/APAP 5 MG/325 MG (LORTAB) TAB PO PRN (02:00)
[2023-01-02] MEDS: IBUPROFEN 600 MG (MOTRIN) TAB PO SCH (05:44)
[2023-01-02 05:45] VITALS: BP 153/82
[2023-01-02] MEDS: DOCUSATE SODIUM 100 MG (COLACE) CAP PO SCH (09:52)
[2023-01-02 09:53] VITALS: BP 128/70
--- NOTE | 2023-01-02 10:34 | Postpartum Progress Note ---
Note Note Day # 2 Subjective: Patient is without complaints. Ambulating, voiding. Tolerating a regular diet without nausea or vomiting. Normal lochia. Pain is well controlled with oral pain medications. Physical Exam: General - Alert and oriented, no apparent distress Abdomen - Soft, appropriately tender to palpation, non-distended, fundus firm at umbilicus; incision c/d/i Extremities - no edema, negative Manjit's bilaterally Assessment: Post- day # 2, status post PLTCS Recovering well, hemodynamically stable Plan: Routine care. Encourage breast feeding. Encourage ambulation. Ferrous sulfate supplementation. Plan for discharge today Vitals - Labs Vital Signs - I&O Vital Signs Date Time Temp Pulse Resp B/P (MAP) Pulse Ox O2 Delivery O2 Flow Rate FiO2 01/02/23 09:53 37.1 91 18 128/70 (89) 96 Room Air 01/02/23 05:45 37.3 86 18 153/82 (105) 97 Room Air 01/01/23 22:18 36.4 80 18 114/69 (84) 97 Room Air 01/01/23 16:08 36.3 80 18 128/64 (85) 98 Room Air Labs Microbiology 12/30/22 Urine Culture - Final, Complete Gram Pos Mixed Bacterial Pita No Further Testing CASPER NAIK HISTOPATHOLOGIST Jan 02, 2023 10:34
[2023-01-02] MEDS ORDERED: DOCU100C37 PO (10:38)
[2023-01-02] MEDS ORDERED: IBUP-844 PO (10:38)
[2023-01-02] MEDS ORDERED: ACHD5005 PO (10:38)
--- NOTE | 2023-01-02 10:41 | Discharge Inst-Women's Service ---
Discharge Inst-Women's Serv Depart Medication/Instructions New, Converted or Re-Newed RX: Transmitted to Pharmacy Consults/Follow Up Additional Follow Up: Yes (1wk incision check and 6wk appt) Activity Activity: Activity as Tolerated Driving Instructions: No Driving for 1 Week NO SMOKING: NO SMOKING Nothing Inside Vagina: No Douching, No Arrey, No Tampons Diet Discharge Diet: No Restrictions Symptoms to Report to : Pain Increased, Fever Over 101 Degrees F, Vaginal Bleeding Increase, Questions/Concerns For Any Problems or Questions: Contact Your Physician Skin/Wound Care Infection Signs and Symptoms: Increased Redness, Foul Odor of Wound, Increased Drainage, Temperature Above 101 F Operative Area Clean and Dry: Keep Incision Clean/Dry Stitches/Milfay/Dermabond: Dermabond CASPER NAIK HEALTH SERVICE WORKER Jan 02, 2023 10:41
== END 2023-01-02 13:05 | disposition home or self-care (01) | DRG 787 ==
LOC: WSo 21:46 → LDRP 21:48 → WSo 22:20 → LDRP 22:20
PROVIDERS: ADMIT Obstetrics & Gynecology; ATTEND Obstetrics & Gynecology
PROC: 10D00Z1 Extraction of Products of Conception, Low, Open Approach (ICD-10-PCS; principal; 2022-12-31 07:05)
DX: O48.0 Post-term pregnancy (principal); D62 Acute posthemorrhagic anemia; O77.9 Labor and delivery complicated by fetal stress, unspecified; Z3A.40 40 weeks gestation of pregnancy; Z37.0 Single live birth; O90.81 Anemia of the puerperium
CPT/HCPCS: 36415; 81000; 83033; 85007; 85025; 85027; 86780; 86850; 86900; 86901; 87088